=== PATIENT | male | born 1925 | race Caucasian/White ===

== ENCOUNTER 2016-05-15 14:46 | Observation (INO) | payer MEDICARE, OTHER ==
--- NOTE | 2016-05-15 15:30 | HP ---
Chief Complaint - Chief Complaint Date of Service: 05/15/16 Time of Service: 15:29 Chief Complaint: swelling, redness and pain in lower extremities left greater right for the last one week. History of Present Illness: Patient is a 89-year-old WM with a history of Aortic stenosis, S/P CABG, Carotid artery disease, HTN, HLD who came to the office on 05/15/2016 because of swelling, pain and redness in his lower extremities, left greater than right getting worse in the last week. He has had problems with his legs for the last few months. There is seeping and oozing of clear fluid from the anterior aspect of the left lower leg. He was admitted for further care and treatment. He denies any fevers, chills or history of injury. 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 Additional Info: PAST SURGICAL HISTORY: S/P cholecystectomy 1995; S/P CABG 3 01/1997. - Family History Father Family History - Medical: - 74COPD Mother Family History - Medical: - 90- old age Grandmother (Paternal) Family History - Medical: - Social History Living Situations: home - with son Smoking Status: Former smoker - 3/4 PPD for 15 years ; quit at age 32. Have you smoked in the past 12 months: No Do you dip or chew tobacco: No Review Of Systems (GEN) - Review of Systems Generalized/Overall Review: Present: Weakness - occass. falls, uses cane EENTM: Present: Eye Pain - blind Respiratory: Present: Shortness of Breath. Absent: Cough Cardiac: Present: Edema. Absent: Chest Pain Abdominal: Absent: Nausea, Vomiting Musculoskeletal: Present: Back Pain, Neck Pain, Other - leg pain Allergies/Adverse Reactions: Allergies Allergy/AdvReac Type Severity Reaction Status Date / Time No Known Drug Allergies Allergy Verified 05/15/16 15:13 Home Medications: HOME MEDICATIONS Aspirin 1 tab PO DAILY 05/15/16 [Last Taken Unknown] Bimatoprost [Lumigan 0.01% Opth Solution] 1 drop OP DAILY 05/15/16 [Last Taken Unknown] Brinzolamide [Azopt 1% Ophthalmic Suspension] 2 drop OP DAILY 05/15/16 [Last Taken Unknown] Nitroglycerin [Nitrostat] 0.4 mg SL Q5MIN PRN 05/15/16 [Last Taken Unknown] Prednisone [Urvashi] 5 mg PO Q48H 05/15/16 [Last Taken Unknown] Quinapril HCl [Accupril] 20 mg PO DAILY 05/15/16 [Last Taken Unknown] Simvastatin [Zocor] 40 mg PO HS 05/15/16 [Last Taken Unknown] Tamsulosin HCl [Flomax] 0.4 mg PO DAILY 05/15/16 [Last Taken Unknown] Exam - Exam Constitutional: Present: Elderly, Thin and frail - looks uncomfortable due to pain, looks his age. 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 Neck: Present: trachea midline, limited range of motion Respiratory: Present: normal breath sounds, no respiratory distress, no accessory muscle use Cardiovascular/Chest: Present: regular rate, rhythm - harsh systolic murmur c/w aortic stenosis. Absent: tachycardia Peripheral Pulses: carotid (R): 2+ - bruit +, carotid (L): 2+ - Bruit + Abdomen: Present: Normal bowel sounds, soft, nontender, nondistended /Rectal: Present: Exam deferred Extremity: Present: other - both feet, ankles, lower extremities are swollen, LT > RT; dorsalis pedis cannot be palpated due to swelling, red, shiny, mildly warm to touch, no open areas noted. not significantly erythematous. nails dysmorphic, onchomycosis present. Neurologic: Present: alert, oriented x 3 Eye contact: Present: cooperative, good eye contact Diagnostic Studies: Laboratory Tests 05/15/16 16:03 WBC 8.1 Hgb 13.5 Hct 40.9 L Plt Count 201 05/15/16 16:03 Plasma Sodium 138 Potassium 4.1 Chloride 106 Carbon Dioxide 27.2 BUN 27 H Creatinine 1.66 H Est GFR (Non-Af Amer) 42 L Random Glucose 118 H Calcium Adj for Albumin 9.9 Total Bilirubin 0.5 AST 12 ALT 16 L Alkaline Phosphatase 57 Total Protein 6.5 Albumin 3.5 05/15/16 16:03 Lactic Acid, Venous 1.2 C-Reactive Prot, Quant 0.5 Assessment/Plan - Narrative Narrative: Cellulitis of lower extremities: Patient will be started on ampicillin and sulbactam 3 g IV every 6 hours. There may be a component of PAD. GREGG's may have wait till 05/18/16. DVT prophylaxis in the form of in Lovenox 40 mg daily[pharmacy to adjust both medications if needed]. Mild dehydration: BUN/CR at 27/1.66. Patient will be started on 0.45% normal saline at 70 mL an hour. Check BMP on 05/16/2016. Aortic stenosis: Asymptomatic. Per cardiology is not a candidate for intervention. S/P CAB in 01/1997. Stable. Hypertension: On quinapril 20 mg at bedtime. Continue same. Hyperlipidemia: On simvastatin 40 mg at HS. Continue same.
[2016-05-15] MEDS ORDERED: AMPICILLIN SODIUM/SULBACTAM NA 3 GM in NORMAL SALINE 100 ML IV STA (15:45)
[2016-05-15] MEDS ORDERED: ENOXAPARIN SODIUM 40 MG/0.4 ML SYRG SC SCH (15:45)
[2016-05-15] MEDS ORDERED: NITROGLYCERIN 0.4 MG/TAB BTL SL PRN (15:49)
[2016-05-15 16:11] LABS: Hematocrit 40.9 % (42.0-52.0); Hemoglobin 13.5 gm/dL (13.5-18.0); Mean Cell Volume 92.3 fl (78-100); Mean Corpuscular Hemoglobin 30.5 pg (27-31); Mean Platelet Volume 10.5 fl (6.0-9.5); Neutrophil # 5.3 K/mm3 (1.3-6.0); Neutrophil % 65.2 % (42-75.0); Platelet Count 201 K/mm3 (150-450); Red Blood Count 4.43 M/mm3 (4.7-6.0); Red Cell Distribution Width 12.9 % (11.5-14.0); White Blood Count 8.1 K/mm3 (4.0-10.5)
[2016-05-15 16:21] LABS: Albumin * 3.5 gm/dl (3.4-5.0); Anion Gap 8.9 mmol/L (6.8-13.8); BUN/Creatinine Ratio 16.3 (9.0-21.6); Bilirubin, Total 0.5 mg/dL (0.0-1.1); CRP 0.5 mg/dL (0.0-0.9); Ca. Corrected For Albumin 9.9 mg/dL (8.4-10.2); Calcium * 9.8 mg/dL (7.9-10.9); Carbon Dioxide 27.2 mmol/L (24-32.6); Potassium 4.1 mmol/L (3.4-4.6); Total Protein 6.5 gm/dL (6.2-8.2)
[2016-05-15] MEDS: HYDROPHILIC OINTMENT 454 APPL JAR TP SCH ×2 (16:51→22:04)
[2016-05-15] MEDS ORDERED: TAMSULOSIN HCL 0.4 MG CAP.SR.24H PO SCH (18:00)
[2016-05-15] MEDS ORDERED: 0.5 NORMAL SALINE 1,000 ML IV STA (19:25)
[2016-05-15] MEDS ORDERED: SIMVASTATIN 40 MG TABLET PO SCH (21:00)
[2016-05-15] MEDS ORDERED: ENALAPRIL MALEATE 20 MG TABLET PO SCH (21:00)
[2016-05-16] MEDS ORDERED: AMPICILLIN SODIUM/SULBACTAM NA 3 GM in NORMAL SALINE 100 ML IV SCH (04:00)
[2016-05-16 06:00] LABS: Anion Gap 12.4 mmol/L (6.8-13.8); BUN/Creatinine Ratio 15.1 (9.0-21.6); Calcium * 9.1 mg/dL (7.9-10.9); Carbon Dioxide 24.9 mmol/L (24-32.6); Estimated Creat Clear 34.7; Potassium 4.3 mmol/L (3.4-4.6)
[2016-05-16] MEDS: BRINZOLAMIDE 100 DROP BTL EACHEYE SCH ×2 (07:04→08:39)
[2016-05-16] MEDS ORDERED: ACETAMINOPHEN 325 MG TABLET PO PRN (07:13)
[2016-05-16] MEDS: HYDROPHILIC OINTMENT 454 APPL JAR TP SCH (08:42)
[2016-05-16] MEDS ORDERED: BIMATOPROST 25 DROP BTL RIGHTEYE SCH ×2 (09:00→21:00)
[2016-05-16] MEDS ORDERED: BIMATOPROST 25 DROP BTL OP SCH (09:00)
[2016-05-16] MEDS ORDERED: ASPIRIN 81 MG TABLET.DR PO SCH (09:00)
[2016-05-16] MEDS ORDERED: BRINZOLAMIDE 100 DROP BTL OP SCH (09:00)
--- NOTE | 2016-05-16 10:19 | PN ---
[id number] his demarcated lines. No weeping. Will start erythromycin ophthalmic ointment. 05/16/16 12:55 05/19/16 06:48
[2016-05-16 10:21] VITALS: BP 124/55
[2016-05-16] MEDS ORDERED: ERYTHROMYCIN BASE 1 APPL TUBE EACHEYE SCH (11:00)
--- NOTE | 2016-05-16 12:58 | DS ---
Description of Stay: Ranulfo fitzgerald is a 89-year-old WM with a history of Aortic stenosis, S/P CABG, Carotid artery disease, HTN, HLD who came to the office of Dr. Hinds on 05/15 because of swelling, pain and redness in his lower extremities, left greater than right getting worse in the last week. He has had problems with his legs for the last few months. There is seeping and oozing of clear fluid from the anterior aspect of the left lower leg. He was admitted for further care and treatment. He denies any fevers, chills or history of injury. He was admitted and started on IV antibiotics. He he hemodynamically stable. He is stable to be discharge today on oral antibiotics and follow up with is his PCP in 1 week. He needs to elevate his legs . Procedures Performed: none Discharge Disposition: Home self care Disposition: Home self-care Condition: Fair Discharge Activity: Activity as tolerated Discharge Diet: Consistent carbs, Low salt, Low fat/chol Referrals: Alex Rome MD [Primary Care Provider] - Additional Patient Instructions (free text): Follow up with PCP next week- Dr. Rome. elevate legs whenever he can. Prescriptions (Any new or edited meds): Acetaminophen [Tylenol] 650 mg PO Q6H PRN #30 tablet PRN Reason: Mild Pain Amox Tr/Potassium Clavulanate [Augmentin 875-125 Tablet] 875 mg PO Q12H #20 tab Erythromycin Base [Erythromycin Ophthalmic Ointment] 1 appl EACHEYE DAILY #1 tube Hydrophilic Ointment [Aquaphilic Ointment] 1 appl TP BID #1 jar Complete Home Medications List: Complete Home Medication List: Aspirin 1 tab PO DAILY 05/15/16 Bimatoprost [Lumigan 0.01% Ophthalmic Solution] 1 drop OP DAILY 05/15/16 Brinzolamide [Azopt 1% Ophthalmic Suspension] 2 drop OP DAILY 05/15/16 Nitroglycerin [Nitrostat] 0.4 mg SL Q5MIN PRN 05/15/16 Prednisone [Urvashi] 5 mg PO Q48H 05/15/16 Quinapril HCl [Accupril] 20 mg PO DAILY 05/15/16 Simvastatin [Zocor] 40 mg PO HS 05/15/16 Tamsulosin HCl [Flomax] 0.4 mg PO DAILY 05/15/16 Acetaminophen [Tylenol] 650 mg PO Q6H PRN #30 tablet 05/16/16 Amox Tr/Potassium Clavulanate [Augmentin 875-125 Tablet] 875 mg PO Q12H #20 tab 05/16/16 Erythromycin Base [Erythromycin Ophthalmic Ointment] 1 appl EACHEYE DAILY #1 tube 05/16/16 Hydrophilic Ointment [Aquaphilic Ointment] 1 appl TP BID #1 jar 05/16/16
== END 2016-05-16 14:14 | disposition home or self-care (01) ==
LOC: INTOOBSV 14:46 → MS 14:46 → OBSVTOIN 14:46
PROVIDERS: ADMIT Internal Medicine; ATTEND Internal Medicine
DX: L03.116 Cellulitis of left lower limb (principal); L03.115 Cellulitis of right lower limb; E86.0 Dehydration; I10 Essential (primary) hypertension; I35.0 Nonrheumatic aortic (valve) stenosis; Z95.1 Presence of aortocoronary bypass graft; E78.5 Hyperlipidemia, unspecified; Z87.891 Personal history of nicotine dependence
CPT/HCPCS: 36415; 80048; 80053; 83605; 85025; 86140; 96365; 96372; G0378; G0379